=== PATIENT | female | born 1960 | race Caucasian/White ===

== ENCOUNTER 2018-12-28 20:23 | Emergency (ER) | payer MEDICAID ==
[~2018-12-28] VITALS: Ht 162.6 cm; Wt 95.3 kg
[2018-12-28 20:31] VITALS: BP 165/89
--- NOTE | 2018-12-28 20:33 | NUR ---
PT TO ER LOBBY VIA W/C IN STABLE CONDITION.
--- NOTE | 2018-12-28 22:55 | NUR ---
BIB FAMILY C/O 8/10 LOWER BACK PAIN FROM THIS MORNING. PT STATES SHE BENT DOWN TO LIFT SOMETHING UP AT HOME AND FELT A SHARP PAIN. DENIES FALL OR TRAUMA. DENIES N/V/D, LOC, SOB, CP. AAOX4. PT IN GOWN IN BED; BED IN LOWER LOCKED POSITION, BEDRAILS UP X2. ER MD MADE AWARE OF PT STATUS. PMH: HTN, HYPERTHYROID, BACK SURGERY X16 YR AGO
--- NOTE | 2018-12-28 23:04 | NUR ---
DR. BROOKS AT BEDSIDE FOR EVALUATION.
[2018-12-28] MEDS ORDERED: MORPHINE SULFATE 4 MG/ML SYR IM ONE (23:10)
[2018-12-28] MEDS ORDERED: CYCLOBENZAPRINE 10 MG TAB PO ONE (23:10)
[2018-12-29] MEDS ORDERED: MORPHINE SULFATE 4 MG/ML SYR IM ONE (00:40)
--- NOTE | 2018-12-29 01:02 | NUR ---
CALL TO NURSE SUP KEISHA HEREDIA IS OUT OF MORPHINE. CHANEL WILL BRING MEDS TO FLOOR.
[2018-12-29] MEDS ORDERED: MORPHINE SULFATE 4 MG/ML SYR ONE (01:29)
[2018-12-29 02:05] LABS: APPEARANCE,URINE CLEAR (CLEAR); BILIRUBIN,URINE NEGATIVE (NEGATIVE); BLOOD, URINE TRACE (NEGATIVE); COLOR,URINE YELLOW (YELLOW); UGLUCOSE NEGATIVE (NEGATIVE)
[2018-12-29 02:06] LABS: LEUKOCYTE ESTERASE ,URINE TRACE (NEGATIVE); NITRITE, URINE NEGATIVE (NEGATIVE); RBC,URINE 0-5 (RARE) /HPF (0-5); WBC,URINE 0-5 (RARE) /HPF (0-5)
--- NOTE | 2018-12-29 03:15 | NUR ---
Patient discharged with v/s stable. Written and verbal after care instructions given and explained. Patient alert, oriented and verbalized understanding of instructions. Ambulatory with steady gait. All questions addressed prior to discharge. ID band removed. Patient advised to follow up with PMD. Rx of Tramadol Hydrochloride given. Patient educated on indication of medication including possible reaction and side effects. Opportunity to ask questions provided and answered.
[2018-12-29 03:20] VITALS: BP 113/61
== END 2018-12-29 03:15 | disposition home or self-care (01) ==
LOC: MED 20:23
DX: G89.29 Other chronic pain (principal); M54.5 Low back pain; I10 Essential (primary) hypertension; E07.9 Disorder of thyroid, unspecified; Z88.0 Allergy status to penicillin
CPT/HCPCS: 72131; 81001; 81025; 96372; 99284; J2270